=== PATIENT | female | born 1995 ===

== ENCOUNTER 2018-07-06 14:31 | Emergency (ER) | payer OTHER ==
[2018-07-06 14:52] VITALS: BP 98/66
--- NOTE | 2018-07-06 15:47 | UC ---
Dizzy HPI HPI Summary: 23 yo female was very unsteady 2 days ago (disequiilibrium) It informed yesterday but she had a GUZMAN (vtx, "squeezing") Now GUZMAN gone Feels mildly dizzy fatigued NO f/c has URI one week ago no ear pain no sinus pressure - History Of Current Complaint Chief Complaint: UCDizziness Stated Complaint: DIZZY Time Seen by Provider: 07/06/18 15:31 Hx Obtained From: Patient Hx Last Menstrual Period: 06/20/18 Onset/Duration: Gradual Onset, Lasting Days Timing: Constant Severity Initially: Moderate Severity Currently: Mild Pain Intensity: 1 Pain Scale Used: 0-10 Numeric Character: Lightheaded, Dizzy Aggravating Factor(s): Position Change, Supine To Erect, Change In Head Position Alleviating Factor(s): Rest Associated Signs And Symptoms: Positive: Unsteady Gait - day one. Negative: Nausea, Vomiting, Diaphoresis, Tinnitus, Chest Pain, SOB, Palpitations, Visual Changes, Decreased Oral Intake, Change In Medication, Change In Diet, OTC Medications - Allergies/Home Medications Allergies/Adverse Reactions: Allergies Allergy/AdvReac Type Severity Reaction Status Date / Time dust Allergy Eyes Uncoded 07/06/18 14:52 Itchy/Swollen/Red/Watery Home Medications: Home Medications Albuterol HFA INHALER* [Ventolin HFA Inhaler*] 1 puff INH ONCE PRN 07/06/18 [ History Confirmed 07/06/18] Aspirin/Acetaminophen/Caffeine [Excedrin Migraine Caplet] 1 tab PO ONCE PRN 05/15 [History Confirmed 07/06/18] Ibuprofen [Advil] 200 mg PO ONCE PRN 07/06/18 [History Confirmed 07/06/18] PMH/Surg Hx/FS Hx/Imm Hx Previously Healthy: Yes - Surgical History Surgical History: None - Family History Known Family History: Positive: Hypertension - Social History Alcohol Use: Occasionally Substance Use Type: None Smoking Status (MU): Never Smoked Tobacco Review of Systems All Other Systems Reviewed And Are Negative: Yes Constitutional: Positive: Fatigue Skin: Positive: Negative Eyes: Positive: Negative ENT: Positive: Negative Respiratory: Positive: Negative Cardiovascular: Positive: Negative Gastrointestinal: Positive: Negative Genitourinary: Positive: Negative Motor: Positive: Negative Neurovascular: Positive: Negative Musculoskeletal: Positive: Negative Neurological: Positive: Headache - resolved Psychological: Positive: Negative Physical Exam Triage Information Reviewed: Yes Appearance: Well-Appearing, No Pain Distress, Well-Nourished Vital Signs: Initial Vital Signs Temp 97.4 F 07/06/18 14:47 Pulse 72 07/06/18 14:47 Resp 18 07/06/18 14:47 BP 98/66 07/06/18 14:47 Pulse Ox 100 07/06/18 14:47 Eye Exam: Normal Eyes: Positive: Conjunctiva Clear ENT: Positive: Hearing grossly normal, Pharynx normal, TMs normal - Left ok, right cerumen, Uvula midline. Negative: Nasal congestion, Nasal drainage, Tonsillar swelling, Tonsillar exudate, Trismus, Muffled voice, Hoarse voice, Dental tenderness, Sinus tenderness Neck: Positive: Supple, Nontender, No Lymphadenopathy Respiratory: Positive: Lungs clear, Normal breath sounds, No respiratory distress, No accessory muscle use Cardiovascular: Positive: RRR, No Murmur Musculoskeletal: Positive: ROM Intact, No Edema Neurological: Positive: Alert Psychological Exam: Normal Skin Exam: Normal Dizzy Course/Dx - Differential Dx/Diagnosis Provider Diagnoses: dizziness, non specific Discharge - Sign-Out/Discharge Documenting (check all that apply): Patient Departure All imaging exams completed and their final reports reviewed: No Studies - Discharge Plan Condition: Stable Disposition: HOME Patient Education Materials: Dizziness (ED) Additional Instructions: blood work pending recheck for new or worsening symptoms rest fluids activity as tolerated - Billing Disposition and Condition Condition: STABLE Disposition: Home
[2018-07-06 19:55] LABS: ABS Basophils 0 10^3/ul (0-0.2); ABS Eosinophils 0.3 10^3/ul (0-0.6); ABS Lymphocytes 1.4 10^3/ul (1.0-4.8); ABS Monocytes 0.4 10^3/ul (0-0.8); ABS Neutrophils 4.3 10^3/ul (1.5-7.7); ABS Nucleated RBC 0 10^3/ul; Eosinophil % 4.3 % (0-6); Hematocrit 39 % (35-47); Hemoglobin 13.4 g/dl (12.0-16.0); Lymphocyte % 21.7 % (25-47); Mean Corpuscular HGB Conc 34 g/dl (31-36); Mean Corpuscular Hemoglobin 31 pg (27-31); Mean Corpuscular Volume 91 fL (80-97); Mean Platelet Volume 7.7 fL (7.4-10.4); Nucleated Red Blood Cells % 0.1; Platelet Count 272 10^3/ul (150-450); Red Blood Count 4.31 10^6/ul (4.00-5.40); Red Cell Distribution Width 13 % (10.5-15); White Blood Count 6.5 10^3/ul (3.5-10.8)
== END 2018-07-06 15:56 | disposition home or self-care (01) ==
LOC: UCEAST 14:31
DX: R42 Dizziness and giddiness (principal); Z79.82 Long term (current) use of aspirin; Z91.048 Other nonmedicinal substance allergy status
CPT/HCPCS: 36415; 85025; 99211; G0463